=== PATIENT | female | born 2000 | race Caucasian/White ===

== ENCOUNTER 2020-10-21 13:49 | Emergency (ER) | payer OTHER, SELFPAY ==
--- NOTE | ~2020-10-21 | CT_ITS ---
EXAMINATION: CT abdomen pelvis w con EXAM DATE: 10/21/2020 15:31 INDICATION: 4 days of abdominal pain. Nausea vomiting and diarrhea. TECHNIQUE: Spiral CT of the abdomen and pelvis was performed following intravenous injection of 100 m L Omnipaque 350. Axial, coronal and sagittal images were reviewed. The dose-length product (DLP) fo r this examination was 258.16 mGy-cm. The exposure was tailored according to patient size (auto mA e xposure control), and iterative reconstruction (ASIR) was used as additional dose reduction technique . There is no prior study for comparison. FINDINGS: The liver, spleen, adrenal glands and pancreas are unremarkable. Gallbladder is unremarkab le. No biliary obstruction. Portal and splenic veins are patent. Kidneys enhance symmetrically. T here is no hydronephrosis. The uterus and ovaries are unremarkable, no adnexal mass. The bladder i s unremarkable. There is no retroperitoneal or pelvic lymphadenopathy. The appendix is normal. The stomach and small bowel are unremarkable. There is expected amount of c olonic stool. No free intraperitoneal gas. The heart is normal in size. There are no pericardial or pleural effusions. The lung bases are unremarkable. The bones are unremarkable. IMPRESSION: Unremarkable CT abdomen pelvis exam. Reviewed, dictated and finalized at location B. [facility]
[2020-10-21 14:00] VITALS: BP 114/64; PULSE 83; RESP 18; TEMP 36; O2SAT 100
[2020-10-21 14:38] LABS: Add Urine Microscopic? YES; Appearance Urine Clear (Clear); Bacteria Urine Trace /hpf; Bilirubin Urine Negative (Negative); Blood Urine 3+ (Negative); Color Urine Yellow (Yellow); Glucose Urine UA Negative (Negative); Ketones Urine Trace mg/dL (Negative); Leukocyte Esterase Ur Negative LEU/UL (Negative); Mucus Urine Few /lpf; Nitrate Urine Negative (Negative); Protein Urine 1+ mg/dL (Negative); RBC Urine >75 /hpf (0-2); Squamous Epithelial Cell Urine Rare /hpf (Few); Urobilinogen Urine Negative mg/dL (<2.0)
--- NOTE | 2020-10-21 14:39 | ED.ABDPAIN ---
HPI - Abdominal Pain General Chief Complaint: Abdominal Pain Stated Complaint: ABD Pain Time Seen by Provider: 10/21/20 14:39 Source: patient and family Mode of arrival: ambulatory Limitations: no limitations History of Present Illness HPI narrative: 20 years old white female presents with sudden sharp stabbing pain lower abdominal bilaterally started around noon at rest, associated with nausea, vomiting, hyperventilation, lightheadedness, dizziness and diaphoresis. Patient reports that her handS wer in a spastic position. The above symptoms lasted for 1 hour then resolved. Patient denies any fever, chills, sore throat, headache, chest pain, shortness of breath, exposure to anybody known to have COVID-19. Patient denies any sexual activities. Patient started her. Today, patient reports that she have infrequent., Was diagnosed of endometriosis and dysmenorrhea in the past. Started at age 15. Patient reports that her symptoms are getting worse every year compared to the year before. Patient was seen by CRUSHING MACHINE OPERATOR 2 years ago. 58-year-old Currently patient feeling okay, almost back to normal. Related Data Home Medications Medication Instructions Recorded Confirmed esomeprazole magnesium [Nexium] 40 mg PO DAILY 08/19/19 08/19/19 Allergies Allergy/AdvReac Type Severity Reaction Status Date / Time No Known Allergies Allergy Verified 10/21/20 14:04 Review of Systems Review of Systems: Narrative: CONSTITUTIONAL: Denies fever, chills, or sweats. EYES: Denies visual changes, redness, or discharge. ENT: Denies rhinorrhea, congestion, sore throat, or otalgia. CARDIOVASCULAR: Denies chest pain, palpitations, or edema. RESPIRATORY: Denies cough or dyspnea. GASTROINTESTINAL: Denies abdominal pain, nausea, vomiting, or diarrhea. GENITOURINARY: Denies dysuria or hematuria. SKIN: Denies rash or itching. MUSCULOSKELETAL: Denies back pain, joint pain, or myalgia. NEUROLOGIC: Denies headache, numbness, or weakness. PSYCHIATRIC: Denies anxiety or depression. PMFSH Past Medical History Medical History Nausea & vomiting Exam Narrative: Exam Narrative: General appearance: Well-developed, well-nourished Skin: Normal color Head: Normocephalic, nontraumatic Eyes: Clear conjunctiva ENT: Oropharynx normal, ears normal, nose normal Neck: Supple, nontender Chest and respiratory: Airway patent, no respiratory distress, no accessory muscle use Heart: Regular rate/rhythm Abdomen: Soft, nontender, no organomegaly, quiet bowel sounds Vascular: Normal peripheral pulses, normal capillary refill. Musculoskeletal: Normal range of motion, nontender back Neurologic: Alert and oriented ?3, CASTING MACHINE OPERATOR HELPER is normal as tested, no gross motor deficit Course Course Emergency Course: Improving Vital Signs Vital signs: Vital Signs Temperature 36.0 C L 10/21/20 14:00 Pulse Rate 83 10/21/20 14:00 Respiratory Rate 18 10/21/20 14:00 Blood Pressure 114/64 10/21/20 14:00 Pulse Oximetry 100 10/21/20 14:00 Temperature 36.0 C L 10/21/20 14:00 Pulse Rate 83 10/21/20 14:00 Respiratory Rate 18 10/21/20 14:00 Blood Pressure 114/64 10/21/20 14:00 Pulse Oximetry 100 10/21/20 14:00 MDM - Abdominal Pain MDM Narrative Medical decision making narrative: Patient presents with symptomatic recurrent lower abdominal pain since she was 15 years old. This 1 was more severe. Endometriosis, appendicitis, urinary tract infection, ovarian cyst are my concern. Labs, CT abdomen pelvis with IV contrast ordered. Further plan to follow. PID is less likely, patient is not sexually active, started her. Yesterday. Blood work-up
[2020-10-21] MEDS: SODIUM CHLORIDE 0.9% IV 1,000 ML 999 ML IV CONT (14:46)
[2020-10-21 14:47] LABS: Basophils Percent Auto 0.2 % (0.2-1.2); Eosinophils Absolute Auto 0.1 K/mm3 (0-0.3); Eosinophils Percent Auto 0.5 % (0-4.4); Hematocrit 36.5 % (37.0-47.0); Hemoglobin 12.5 g/dL (12.0-15.0); Immature Granulocyte Percent A 0.5 % (0-0.5); Lymphocytes Absolute Auto 2.03 K/mm3 (0.9-3.2); Lymphocytes Percent Auto 10.7 % (18.3-44.2); Mean Corpuscular HGB Conc 34.2 g/dl (32-36); Mean Corpuscular Hemoglobin 29.1 pg (26-34); Mean Corpuscular Volume 85.1 fl (80-100); Mean Platelet Volume 8.5 fl (7.4-10.4); Monocytes Percent Auto 5.4 % (2.6-8.5); Neutrophils Absolute Auto 15.7 K/mm3 (1.3-6.7); Neutrophils Percent Auto 82.7 % (45.5-73.1); Platelet Count Result 341 k/mm3 (150-375); Red Blood Count 4.29 M/mm3 (4.2-5.4); Red Cell Distribution Width 12.3 % (11.5-14.5)
[2020-10-21 15:01] LABS: Alanine Aminotransferase 15 U/L (4-35); Albumin Level 4.2 g/dL (3.5-5.1); Alkaline Phosphatase 51 U/L (38-126); Anion Gap 8 mmol/L (8-16); Aspartate Amino Transferase 25 U/L (14-36); Bilirubin,Total 0.4 mg/dL (0.2-1.3); Blood Urea Nitrogen 10 mg/dL (7-17); Calcium 8.9 mg/dL (8.4-10.2); Carbon Dioxide 24 mmol/L (22-30); Chloride 106 mmol/L (98-107); Estimated CRCL calculation 98 ml/min; Estimated Glomerular Filt Rate > 60; Glucose 106 mg/dL (65-105); Lipase 74 U/L (23-300); Potassium 3.6 mmol/L (3.4-5.0); Sodium 138 mmol/L (137-145)
[2020-10-21 16:40] VITALS: BP 115/73; PULSE 83; RESP 16; O2SAT 100
== END 2020-10-21 16:42 | disposition home or self-care (01) ==
PROVIDERS: Emergency Provider Emergency Medicine; PCP Internal Medicine
DX: N94.6 Dysmenorrhea, unspecified (principal); F45.8 Other somatoform disorders; R10.30 Lower abdominal pain, unspecified; R10.31 Right lower quadrant pain
CPT/HCPCS: 36415; 74177; 80053; 81001; 81025; 83690; 85025; 99284; J7030; Q9967